=== PATIENT | female | born 1950 | race Caucasian/White ===

== ENCOUNTER 2017-10-11 12:23 | Emergency (ER) | payer MEDICARE ==
[~2017-10-11] VITALS: Ht 157.5 cm; Wt 69.6 kg
[~2017-10-11 12:23] MED LIST: ALBU17I INH; AMOX500T PO; METF850T PO; PRED20 PO; ZIAC2.5T
[2017-10-11 12:39] VITALS: BP 148/67; PULSE 69; RESP 16; TEMP 98; O2SAT 96
[2017-10-11] MEDS ORDERED: AMOX500C PO (12:53)
[2017-10-11] MEDS ORDERED: ZIAC2.5T PO (12:53)
[2017-10-11] MEDS ORDERED: LEVO25TA4 PO (12:53)
--- NOTE | 2017-10-11 13:06 | PD ---
HPI Chief Complaint: Pain: Acute or Chronic Time Seen by Provider: 13:04 Travel History International Travel<30 days: No Contact w/Intl Traveler<30days: No Traveled to known affect area: No History of Present Illness HPI 67-year-old female presents emergency Department with ongoing and worsening right DIP joint pain and swelling of the fourth digit. Patient reports puncture wound to this area in 2016 after [employer]. Inset time she feels the area has been swollen and uncomfortable. There is no redness or drainage. She has no open wound. She has no history of rheumatoid arthritis or gout. There are chills or other symptoms. She is allergic to azithromycin and erythromycin. PFSH Past Medical History Cardiovascular Problems: Yes (htn on meds) Diabetes: Yes Patient Takes Glucophage: No Diminished Hearing: No Hypertension: Yes Thyroid Disease: Yes Tetanus Vaccination: Unknown Influenza Vaccination: Yes ?: Not Dilation and Curettage (D&C): Yes Past Surgical History Tonsillectomy: Yes Other Surgery: Yes (bilat breast biopsy) Social History Alcohol Use: No Tobacco Use: No Substance Use: No Allergies-Medications (Allergen,Severity, Reaction): Coded Allergies: azithromycin (Unverified Allergy, Severe, 10/11/17) erythromycin base (Unverified Allergy, Severe, 10/11/17) Reported Meds & Prescriptions Reported Meds & Active Scripts Active Reported Amoxicillin 500 Mg Cap 500 Mg PO TID Levothyroxine (Levothyroxine Sodium) 25 Mcg Tab 25 Mcg PO DAILY Ziac (Bisoprolol-Hydrochlorothiazide) 2.5-6.25 Mg Tab 1 Tab PO DAILY Review of Systems General / Constitutional: No: Fever Eyes: No: Visual changes HENT: No: Headaches Cardiovascular: No: Chest Pain or Discomfort Respiratory: No: Shortness of Breath Gastrointestinal: No: Abdominal Pain Genitourinary: No: Dysuria Musculoskeletal: Positive: Arthralgias, Limited ROM, Pain Skin: No Rash Neurologic: No: Weakness Psychiatric: No: Depression Endocrine: No: Polydipsia Hematologic/Lymphatic: No: Easy Bruising Physical Exam Narrative GENERAL: No acute distress. SKIN: Warm and dry. Normal color. Normal turgor. No signs of infection. HEAD: Atraumatic. Normocephalic. EYES: Pupils equal and round. No scleral icterus. No injection or drainage. ENT: No nasal bleeding or discharge. Mucous membranes pink and moist. NECK: Trachea midline. No JVD. CARDIOVASCULAR: Regular rate and rhythm. RESPIRATORY: No accessory muscle use. Clear to auscultation. Breath sounds equal bilaterally. GASTROINTESTINAL: Abdomen soft, non-tender, nondistended. Hepatic and splenic margins not palpable. MUSCULOSKELETAL: Extremities without clubbing, cyanosis, or edema. Patient has normal appearing fingers with typical osteoarthritic changes. Rest of exam is unremarkable. NEUROLOGICAL: Awake and alert. No obvious cranial nerve deficits. Motor grossly within normal limits. Five out of 5 muscle strength in the arms and legs. Normal speech. PSYCHIATRIC: Appropriate mood and affect; insight and judgment normal. Data Data Last Documented VS Vital Signs Date Time Temp Pulse Resp B/P (MAP) Pulse Ox O2 Delivery O2 Flow Rate FiO2 10/11/17 12:39 98.0 69 16 148/67 (94) 96 Orders Orders Hand, Complete ([id number]) (10/11/17 13:13) [facility] Medical Decision Making Medical Screen Exam Complete: Yes Emergency Medical Condition: Yes Differential Diagnosis Right fourth finger pain. Right fourth finger swelling. Also arthritis. Orals note. Possible retained foreign body. Narrative Course Patient's medically stable at time of exam. X-ray of the right hand is ordered. X-ray shows osteo-arthritis versus possible gout versus septic arthritis. Patient is given meloxicam 7.5 mg twice a day #30. Patient is referred to Dr. Jackson, the hand surgeon for further evaluation and treatment as needed. Diagnosis Primary Impression: Osteoarthritis of finger of right hand Referrals: Helio Jackson III, MD Patient Instructions: Arthritis (ED), General Instructions Additional Instructions: X-ray shows osteo-arthritis versus possible gout versus septic arthritis. Patient is given meloxicam 7.5 mg twice a day #30. Patient is referred to Dr. Jackson, the hand surgeon for further evaluation and treatment as needed. Med/Other Pt SpecificInfo: Prescription(s) given Disposition: 01 DISCHARGE HOME Condition: Stable Richie Cervantes Oct 11, 2017 13:06
--- NOTE | 2017-10-11 14:14 | RADRPT ---
EXAM DATE/TIME: 10/11/2017 13:46 [facility] COMPARISON: No previous studies available for comparison. INDICATIONS : Possible puncture wound to right 4th finger 1 year ago, Still has pain, swelling MEDICAL HISTORY : Diabetes mellitus type II. Hypertension SURGICAL HISTORY : None. ENCOUNTER: Initial ACUITY: 1 year PAIN SCORE: 6/10 LOCATION: Right 4th finger FINDINGS: Three view examination of the right hand demonstrates severe degenerative osteoarthritic changes at t he first CMC joint. In addition, there is complete loss of joint space of the distal interphalangeal joint of the fourth digit with marginal erosions. Osseous structures are otherwise intact. CONCLUSION: 1. Complete loss of joint space with marginal erosions in the distal interphalangeal joint of the fou rth ray. Diagnostic considerations are predominantly severe erosive osteoarthritis or possibly gouty or septic arthritis considering the patient's clinical history. 2. Degenerative osteoarthritic changes of the first CMC joint. Martín Melton MD on October 11, 2017 at 14:09 Board Certified Radiologist. This report was verified electronically.
[2017-10-11] MEDS ORDERED: MELO7.5T27 PO (14:21)
== END 2017-10-11 14:53 | disposition home or self-care (01) ==
LOC: PHED 12:23 → PHEFT 14:53
DX: M19.041 Primary osteoarthritis, right hand (principal); E11.9 Type 2 diabetes mellitus without complications; I10 Essential (primary) hypertension; E07.9 Disorder of thyroid, unspecified; Z86.79 Personal history of other diseases of the circulatory system
CPT/HCPCS: 73130; 99283

== ENCOUNTER → 2017-12-29 | Outpatient (CLI) | payer MEDICARE ==
[~2017-12-29] MED LIST changes: -ALBU17I INH; +AMOX500C PO; -AMOX500T PO; +LEVO25TA4 PO; +MELO7.5T27 PO; +METF1000 PO; +METF500T PO; -METF850T PO; -PRED20 PO; -ZIAC2.5T; +ZIAC2.5T PO
[2017-12-29 12:22] LABS: AUTOMATED NEUTROPHIL # 4.1 TH/MM3 (1.8-7.7); BASOPHIL # 0.1 TH/MM3 (0-0.2); BASOPHIL % 0.9 % (0.0-2.0); EOSINOPHIL # 0.2 TH/MM3 (0-0.4); EOSINOPHIL % 2.9 % (0.0-4.0); HEMATOCRIT 41.1 % (35.0-46.0); HEMOGLOBIN 14.2 GM/DL (11.6-15.3); LYMPHOCYTE # 1.8 TH/MM3 (1.0-4.8); MEAN CELL VOLUME 89.8 FL (80.0-100.0); MEAN CORPUSCULAR HEMOGLOBIN 30.9 PG (27.0-34.0); MEAN CORPUSCULAR HGB CONC 34.5 % (32.0-36.0); MONO % 7.7 % (0.0-8.0); MONOCYTE # 0.5 TH/MM3 (0-0.9); NEUT % 61.5 % (16.0-70.0); PLATELET COUNT 182 TH/MM3 (150-450); RED BLOOD COUNT 4.58 MIL/MM3 (4.00-5.30); RED CELL DISTRIBUTION WIDTH 13.1 % (11.6-17.2); WHITE BLOOD COUNT 6.7 TH/MM3 (4.0-11.0)
[2017-12-29 12:47] LABS: WESTERGREN SEDIMENTATION RATE 21 mm/hr (0-30)
== END ==
LOC: CLAB 11:31
PROVIDERS: ATTEND Orthopaedic Surgery Hand Surgery
DX: M19.041 Primary osteoarthritis, right hand (principal); M79.644 Pain in right finger(s)
CPT/HCPCS: 36415; 85025; 85652; 86140

== ENCOUNTER 2018-01-24 09:59 | Emergency (ER) | payer MEDICARE ==
[~2018-01-24] VITALS: Ht 157.5 cm; Wt 71.0 kg
[2018-01-24 10:07] VITALS: BP 161/72; PULSE 77; RESP 16; TEMP 98.7; O2SAT 96
--- NOTE | 2018-01-24 12:21 | PD ---
HPI Chief Complaint: Fall Time Seen by Provider: 10:59 Travel History International Travel<30 days: No Contact w/Intl Traveler<30days: No Traveled to known affect area: No History of Present Illness HPI This is a 67-year-old female here for 2 complaints. She reports she had mechanical given fall from standing position onto flexed knees 2 days ago. She has had pain in the knees fall. She is able to ambulate and flex and extend the knees without difficulty. She has tenderness to palpation of the anterior aspect. No paresthesia or weakness of the extremities. Denies difficulty ambulating. She also reports mild URI-like symptoms which include sneezing, sore throat, cough, nasal congestion. No fever chills. Severity is mild. PFSH Past Medical History Cardiovascular Problems: Yes (htn on meds) Diabetes: Yes Patient Takes Glucophage: Yes Diminished Hearing: No Hypertension: Yes Thyroid Disease: Yes Influenza Vaccination: No ?: Not Dilation and Curettage (D&C): Yes Past Surgical History Tonsillectomy: Yes Other Surgery: Yes (bilat breast biopsy) Social History Alcohol Use: No Tobacco Use: No Substance Use: No Allergies-Medications (Allergen,Severity, Reaction): Coded Allergies: azithromycin (Verified Allergy, Severe, 01/24/18) erythromycin base (Verified Allergy, Severe, 01/24/18) Reported Meds & Prescriptions Reported Meds & Active Scripts Active Reported Metformin (Metformin HCl) 500 Mg Tab 500 Mg PO AC DINNER With a meal Metformin (Metformin HCl) 1,000 Mg Tab 1,000 Mg PO DAILY With a meal Levothyroxine (Levothyroxine Sodium) 25 Mcg Tab 25 Mcg PO DAILY Ziac (Bisoprolol-Hydrochlorothiazide) 2.5-6.25 Mg Tab 1 Tab PO DAILY Review of Systems Except as stated in HPI: all other systems reviewed are Neg HENT: Positive: Sore Throat, Congestion Cardiovascular: No: Chest Pain or Discomfort Respiratory: Positive: Cough Gastrointestinal: No: Abdominal Pain Genitourinary: No: Dysuria Physical Exam Narrative GENERAL: Alert and well-appearing 59-year-old female SKIN: Warm and dry. Superficial healing abrasion to the left anterior knee HEAD: Normocephalic. EYES: No injection or drainage. NECK: Supple. No midline spine tenderness. + Left trapezius muscle tenderness CARDIOVASCULAR: Regular rate and rhythm without murmurs, gallops, or rubs. RESPIRATORY: Breath sounds equal bilaterally. No accessory muscle use. GASTROINTESTINAL: Abdomen soft, non-tender, nondistended. MUSCULOSKELETAL: No cyanosis, or edema. Normal strength and sensation in upper and lower extremities. + Mild tenderness to bilateral knees soft tissue anterior aspect. He is able to flex and extend both knees without difficulty. No deformity. No bony point tenderness. 2+ distal pulses. Normal sensation. Brisk cap refill. BACK: Nontender without obvious deformity. No CVA tenderness. +R lumbar paraspinous muscle tenderness Data Data Last Documented VS Vital Signs Date Time Temp Pulse Resp B/P (MAP) Pulse Ox O2 Delivery O2 Flow Rate FiO2 01/24/18 10:07 98.7 77 16 161/72 (101) 96 MDM Medical Decision Making Medical Screen Exam Complete: Yes Emergency Medical Condition: Yes Differential Diagnosis Contusion, sprain, fracture unlikely, mild URI Narrative Course 67-year-old female here with mild URI-like symptoms and bilateral knee contusions after a mechanical fall. She did not hit her head. There was no loss of conscious. Patient is not anticoagulated. The extremity is neurovascularly intact. She is in the waiting without difficulty. I do not suspect fracture. Treatment of contusion was discussed with patient. Diagnosis Primary Impression: Contusion Qualified Codes: S80.00XA - Contusion of unspecified knee, initial encounter Additional Impressions: URI (upper respiratory infection) Qualified Codes: J06.9 - Acute upper respiratory infection, unspecified Trapezius muscle strain Qualified Codes: S46.812A - Strain of other muscles, fascia and tendons at shoulder and upper arm level, left arm, initial encounter Referrals: Primary Care Physician Additional Instructions: [id number] Tylenol or ibuprofen for pain. Santiago wraps as directed. Ice and elevate the extremities. Follow-up with her primary doctor. Disposition: 01 DISCHARGE HOME Condition: Stable Deyanira Jones Jan 24, 2018 12:21
== END 2018-01-24 12:36 | disposition home or self-care (01) ==
LOC: PHED 09:59 → PHEFT 12:36
DX: S80.02XA Contusion of left knee, initial encounter (principal); S80.01XA Contusion of right knee, initial encounter; J06.9 Acute upper respiratory infection, unspecified; S46.812A Strain of other muscles, fascia and tendons at shoulder and upper arm level, left arm, initial encounter; I10 Essential (primary) hypertension; E11.9 Type 2 diabetes mellitus without complications; W19.XXXA Unspecified fall, initial encounter; Z88.1 Allergy status to other antibiotic agents; Z79.84 Long term (current) use of oral hypoglycemic drugs; Z79.899 Other long term (current) drug therapy
CPT/HCPCS: 99282

== ENCOUNTER → 2018-05-07 | Outpatient (CLI) | payer MEDICARE ==
[~2018-05-07] MED LIST changes: -AMOX500C PO; -MELO7.5T27 PO
[2018-05-07 09:24] LABS: ALBUMIN 3.3 GM/DL (3.4-5.0); ALT (GPT) 34 U/L (10-53); AST (GOT) 21 U/L (15-37); BICARBONATE 27.6 MEQ/L (21.0-32.0); BLOOD UREA NITROGEN 18 MG/DL (7-18); CHLORIDE 100 MEQ/L (98-107); GLOMERULAR FILTRATION RATE 83 ML/MIN (>89); GLUCOSE,FASTING 266 MG/DL (74-99); SODIUM (NA) 137 MEQ/L (136-145)
[2018-05-07 09:27] LABS: ALKALINE PHOSPHATASE 100 U/L (45-117); TOTAL BILIRUBIN ADULT 0.4 MG/DL (0.2-1.0); TOTAL PROTEIN 7.3 GM/DL (6.4-8.2)
[2018-05-07 09:47] LABS: AUTOMATED NEUTROPHIL # 3.4 TH/MM3 (1.8-7.7); BASOPHIL # 0.1 TH/MM3 (0-0.2); BASOPHIL % 1.2 % (0.0-2.0); EOSINOPHIL # 0.3 TH/MM3 (0-0.4); HEMATOCRIT 41.4 % (35.0-46.0); HEMOGLOBIN 14.1 GM/DL (11.6-15.3); LYMPH % 25.6 % (9.0-44.0); LYMPHOCYTE # 1.4 TH/MM3 (1.0-4.8); MEAN CELL VOLUME 90.2 FL (80.0-100.0); MEAN CORPUSCULAR HEMOGLOBIN 30.7 PG (27.0-34.0); MEAN PLATELET VOLUME 8.8 FL (7.0-11.0); MONO % 8.5 % (0.0-8.0); MONOCYTE # 0.5 TH/MM3 (0-0.9); NEUT % 59.7 % (16.0-70.0); PLATELET COUNT 168 TH/MM3 (150-450); RED BLOOD COUNT 4.59 MIL/MM3 (4.00-5.30); RED CELL DISTRIBUTION WIDTH 13.1 % (11.6-17.2); WHITE BLOOD COUNT 5.6 TH/MM3 (4.0-11.0)
[2018-05-07 17:30] LABS: HEMOGLOBIN A1C 11.9 % (4.3-6.0)
== END ==
LOC: CLAB 08:22
PROVIDERS: ATTEND Internal Medicine Interventional Cardiology
DX: I11.9 Hypertensive heart disease without heart failure (principal); E11.65 Type 2 diabetes mellitus with hyperglycemia; R00.2 Palpitations; E66.3 Overweight; Z79.899 Other long term (current) drug therapy
CPT/HCPCS: 36415; 80053; 83036; 85025

== ENCOUNTER → 2018-05-15 | Outpatient (CLI) | payer MEDICARE ==
[2018-05-15 21:34] LABS: FREE T3 2.51 PG/ML (2.18-3.98); FREE T4 1.57 NG/DL (0.76-1.46)
== END ==
LOC: CLAB 13:16
PROVIDERS: ATTEND Family Medicine
DX: E03.9 Hypothyroidism, unspecified (principal)
CPT/HCPCS: 36415; 84439; 84443; 84481